=== PATIENT | male | born 1965 | race Caucasian/White ===

== ENCOUNTER → 2024-06-04 | Outpatient (CLI) | payer MEDICAID, SELFPAY ==
--- NOTE | 2024-06-04 | XR_ITS ---
Examination: PA lateral chest 2 views TECHNIQUE: Upright PA lateral chest 2 views Exam date and time: June 04, 2024 1413 hours INDICATIONS: Status post cardiac bypass surgery May 11, 2024 with swelling in the legs FINDINGS: CABG Mild enlargement cardiac contour Mild pulmonary vascular redistribution Moderate left pleural effusion with atelectasis left lower lobe IMPRESSION: Consider ultrasound left hemithorax follow-up to confirm moderate left pleural effusion
== END | disposition home or self-care (01) ==
PROVIDERS: PCP Nurse Practitioner Family; Referring Provider Nurse Practitioner Family; Visit Provider Nurse Practitioner Family
DX: R91.8 Other nonspecific abnormal finding of lung field (principal); Z98.890 Other specified postprocedural states
CPT/HCPCS: 71046

== ENCOUNTER → 2024-08-10 | Outpatient (CLI) | payer MEDICAID, SELFPAY ==
--- NOTE | 2024-08-10 14:33 | XR_ITS ---
Examination: Knee, left , 3 views Technique: Knee AP, lateral, oblique 3 views Date and time of exam: August 10, 2024 1452 hrs. Indications: Twisting injury to the knee one month ago, knee pain Findings: Moderate narrowing medial patellofemoral joints Moderate knee effusion No fracture Impression: No fracture
== END | disposition home or self-care (01) ==
PROVIDERS: PCP Nurse Practitioner Family; Referring Provider Nurse Practitioner Family; Visit Provider Nurse Practitioner Family
DX: S89.92XA Unspecified injury of left lower leg, initial encounter (principal); X50.1XXA Overexertion from prolonged static or awkward postures, initial encounter
CPT/HCPCS: 73562

== ENCOUNTER 2024-08-31 08:55 | Day surgery (SDC) | payer MEDICAID, SELFPAY ==
[2024-08-30 13:33] VITALS: BMI 33.0
[2024-08-31] VITALS (13 sets, daily range): BP systolic 107–157; BP diastolic 63–98; PULSE 62–91; RESP 12–18; TEMP 36.3–37; O2SAT 94–99; BMI 35.6
[2024-08-31] MEDS: RINGERS LACTATED 1000 ML 1,000 ML 125 ML IV (09:52)
[2024-08-31] MEDS: DiphenhydrAMINE INJ 50 MG/ML VIAL 25 MG IV (09:54)
[2024-08-31] MEDS: fentaNYL CIT INJ 50 mCg/ML AMP 2ML (ASD USE ONLY) IV (09:57)
[2024-08-31] MEDS: MIDAZOLAM INJ 1 MG/ML VIAL 2 ML (ASD USE ONLY) 2 MG IV (10:05)
== END 2024-08-31 11:20 | disposition home or self-care (01) ==
PROVIDERS: PCP Nurse Practitioner Family; Referring Provider Surgery; Visit Provider Surgery
PROC: 0DBE8ZX Excision of Large Intestine, Via Natural or Artificial Opening Endoscopic, Diagnostic (ICD-10-PCS; CPT 45380; principal; 2024-08-31 10:15)
DX: Z12.11 Encounter for screening for malignant neoplasm of colon (principal); D12.8 Benign neoplasm of rectum; K57.30 Diverticulosis of large intestine without perforation or abscess without bleeding; K64.8 Other hemorrhoids
CPT/HCPCS: 45385; J1200; J2250; J3010; J7120

== ENCOUNTER → 2025-01-21 | Outpatient (CLI) | payer MEDICAID, SELFPAY ==
--- NOTE | 2025-01-21 14:05 | XR_ITS ---
Examination: Knee, left , 3 views Technique: Knee AP, lateral, oblique 3 views Date and time of exam: January 31, 2025 1406 hours COMPARISON: August 10, 2024 INDICATIONS: Twisting injury to the knee June 2024 FINDINGS: Moderate narrowing medial patellofemoral joints No fracture or dislocation No foreign body IMPRESSION: No fracture or dislocation
--- NOTE | 2025-01-21 14:05 | XR_ITS ---
Examination: Bilateral hands, 6 views. Technique: AP, Oblique, Lateral each hand total 6 views Date and time of exam: March 2025 1406 hours INDICATIONS: Patient fell 3 years ago with injury to both hands, bilateral hand pain. FINDINGS: No acute fracture involving either hand Bilateral moderate osteoarthritis first carpometacarpal joints Bilateral mild osteoarthritis distal interphalangeal joints No erosive arthritis No avascular necrosis IMPRESSION: Osteoarthritis as above
== END | disposition home or self-care (01) ==
PROVIDERS: PCP Nurse Practitioner Family; Referring Provider Nurse Practitioner Family; Visit Provider Nurse Practitioner Family
DX: M19.042 Primary osteoarthritis, left hand (principal); M19.041 Primary osteoarthritis, right hand; M18.0 Bilateral primary osteoarthritis of first carpometacarpal joints; M25.562 Pain in left knee; S89.92XS Unspecified injury of left lower leg, sequela; X50.1XXS Overexertion from prolonged static or awkward postures, sequela
CPT/HCPCS: 73130; 73564

== ENCOUNTER → 2025-02-24 | Outpatient (CLI) | payer MEDICAID, SELFPAY ==
--- NOTE | 2025-02-24 13:47 | XR_ITS ---
Examination: Bilateral hands, 6 views. Technique: AP, Oblique, Lateral each hand total 6 views Date and time of exam: February 24, 2025 1407 hours INDICATIONS: Bilateral hand pain after falling 3 years ago Findings: Moderate osteopenia. Mild osteoarthritis radiocarpal, first carpometacarpal joints as well as distal interphalangeal joints second through fifth digits and interphalangeal joints first digits No erosive arthritis. No acute fractures IMPRESSION: Osteoarthritis as above
--- NOTE | 2025-02-24 13:47 | XR_ITS ---
Examination: Bilateral wrists 6 views TECHNIQUE: AP oblique lateral each wrist total 6 views Date and time: February 24, 2025 1616 hours INDICATIONS: Patient fell 3 years ago with injury to both wrists, bilateral wrist pain. FINDINGS: Moderate osteopenia. No fracture or dislocation involving either wrist. Mild to moderate osteoarthritis radiocarpal, navicular trapezium, first carpometacarpal joints No erosive arthritis IMPRESSION: Osteoarthritis as above
== END | disposition home or self-care (01) ==
LOC: CDIM 13:43
PROVIDERS: PCP Nurse Practitioner Family
DX: M19.042 Primary osteoarthritis, left hand (principal); M19.041 Primary osteoarthritis, right hand; M19.032 Primary osteoarthritis, left wrist; M19.031 Primary osteoarthritis, right wrist
CPT/HCPCS: 73110; 73130

== ENCOUNTER 2025-03-01 12:52 | Outpatient (AMB) | payer MEDICAID, SELFPAY ==
[2025-03-01 13:07] VITALS: BP 119/76; PULSE 79; RESP 18; TEMP 36.5; O2SAT 95; BMI 35.4
--- NOTE | 2025-03-01 13:07 | ORTHONT_ITS ---
Vital signs 03/01/25 13:07 Height 1.78 m Height Method Measured Weight 112.236 kg Weight Measurement Method Standing Scale BMI 35.4 BP 119/76 Blood Pressure Source Automatic Cuff Blood Pressure Location Left Upper Arm Position Sitting Respiration 18 Pulse 79 Pulse Source Monitor Temp 97.7 F Temp Source Temporal Artery Scan Pulse Oximetry (%) 95 Oxygen Delivery Method Room Air Med/Allergies Allergies & Medications Allergies No Known Allergies Allergy (Verified 03/01/25 13:09) Medication Reconciliation buprenorphine 2 mg-naloxone 0.5 mg sublingual film 1 film buccal QDAY 12/03/22 [History Confirmed 03/01/25] atenolol 50 mg tablet 25 mg PO QDAY 11/13/23 [History Confirmed 03/01/25] atorvastatin 20 mg tablet 40 mg PO QDAY 11/13/23 [History Confirmed 03/01/25] dapagliflozin propanediol 10 mg tablet (Farxiga) 10 mg PO QAM 11/13/23 [History Confirmed 03/01/25] thyroid (pork) 120 mg tablet (DIGITAL ACCOUNT MANAGER Thyroid) 120 mg PO QDAY 11/13/23 [History Confirmed 03/01/25] clopidogrel 75 mg tablet 75 mg PO QPM 07/20/24 [History Confirmed 03/01/25] Held on 08/31/24. Instructions: Resume on 09/01/24. ergocalciferol (vitamin D2) 1,250 mcg (50,000 unit) capsule 50,000 unit PO QWEEK 07/20/24 [History Confirmed 03/01/25] ferrous sulfate 325 mg (65 mg iron) tablet (FeroSul) 325 mg PO BIDAC 07/20/24 [History Confirmed 03/01/25] finasteride 5 mg tablet 5 mg PO DAILY 07/20/24 [History Confirmed 03/01/25] folic acid 1 mg tablet 1 mg PO DAILY 07/20/24 [History Confirmed 03/01/25] tamsulosin 0.4 mg capsule 0.4 mg PO QDAY 07/20/24 [History Confirmed 03/01/25] bumetanide 2 mg tablet 2 mg PO QDAY 08/30/24 [History Confirmed 03/01/25] insulin glargine 100 unit/mL (3 mL) subcutaneous pen (Lantus Solostar U-100 Insulin) 50 unit subcut QDAY 08/30/24 [History Confirmed 03/01/25] Exam Exam Breathing is nonlabored. Patient has a normal mood and affect. Bilateral extremities were evaluated and demonstrates sensation intact to light touch. Palpable pedal pulses are present. No significant edema is present. Bilateral hips were examined. The patient has no pain with log roll of the hips. Internal rotation to 30 degrees and external rotation to 30 degrees is painless. Negative FADIR. Left knee was examined today. The left knee is in reasonable alignment. Range of motion from 0-120 degrees. Knee is stable to varus and valgus as well as AP translation with <5mm. Patient has a negative McMurrays. There is no pain with patellofemoral compression and no crepitus noted. The knee is nontender to palpation. The right knee was also examined. The right knee is in varus alignment. Range of motion from 0-115 degrees. Knee is stable to varus and valgus as well as AP translation with <5mm. Patient has a negative McMurrays. There is no pain with patellofemoral compression and no crepitus noted. The knee is tender to palpation medially. Assessment and Plan Problem List (1) Arthritis of left knee: Status: Acute Plan: Patient is a 59-year-old male with left knee pain and left knee arthritis. I would like to get weightbearing x-rays. He had a recent CABG. I would likely do cortisone injections in nonoperative treatment given his medical comorbidities. I would like to see weightbearing x-rays as well We will see him back likely for injections at the next visit. Office Procedures GNS Level of Care Nursing/Assessment Patient Status: Initial/New Patient Nursing Assessment/Reassesment: Medication Reconciliation, Update PMH in EMR and Vital Signs Coordination of Care: Complex Care and Chronic Disease 1-5, Education Complex Pt/Fam, Consent,records obtained, informed consent, Lab and Imaging orders, Results/Orders obtained and Staff clarify orders New Patient Charge New Patient Point Assignment: 1109 New Patient Point Charge: DIGITAL ACCOUNT MANAGER Level 3 ([id number]) MA Intake Visit Data Collection New Patient or Established: New Patient (never been to [facility]) Reason for Visit:: LEFT KNEE PAIN Seen by Clinical Staff ONLY (RN/MA): No Special Effects Person Required: No PCP or OBGYN visit in last 3 months: Yes Hx Now: No Do You Feel Safe at Home: Yes Authorities Contacted: N/A Questionairres Past Medical History Past Medical History Have you ever been diagnosed with any of the following: Neurological Problems Cerebrovascular Accident (CVA): No Transient Ischemic Attacks (TIA): No Dementia: No Alzheimer's Disease: No Parkinson's Disease: No Brain Tumor: No Meningitis: No Seizures: No Epilepsy: No Multiple Sclerosis: No Cerebral Palsy: No Amyotrophic Lateral Sclerosis (ALS/Unique Gehrig's): No Guillain-[place] Syndrome: No Spina Bifida: No Paralysis: No Peripheral Neuropathy: No Carrizales's Palsy: No Subdural Hematoma: No Migraine: No Head Trauma: No Spinal Cord Injury: No Traumatic Brain Injury: No Cardiology Problems Myocardial Infarction: No Cardiac Arrhythmia: No Atrial Fibrillation: No Angina: Yes (takes nitro) Heart Murmur: No Coronary Artery Disease: No Atherosclerotic Heart Disease: No Peripheral Vascular Disease: No Hypercholesterolemia: No Aneurysm: No Congestive Heart Failure: No Congenital Heart Disease: No Valvular Heart Disease: No Rheumatic Fever: No Cardiomyopathy: No Edema: Yes (BLE since bypass) Pericarditis: No Cellulitis: No Deep Vein Thrombosis: No Hypertension: Yes Hypotension: No Varicose Veins: No Respiratory Problems Chronic Obstructive Pulmonary Disease (COPD): No Asthma: No Bronchitis: No Emphysema: No Pneumonia: No Pulmonary Fibrosis: No Tuberculosis: No Pulmonary Embolism: No Pulmonary Edema: No Sleep Apnea: No Stomache/Intestinal Problems Hepatitis: No Cirrhosis: No Pancreatitis: No Celiac Disease: No Gall Bladder Disease: No Gastrointestinal Bleed: No Esophageal Varices: No Cuellar's Esophagus: No Colitis: No Ulcerative Colitis: No Diverticulitis: No Diverticulosis: No Ulcer: No Colorectal Cancer: No Irritable Bowel: No Crohn's Disease: No Obstructive Bowel: No Hiatal Hernia: No Hemorrhoids: No Gastroesophageal Reflux Disease: No Obesity: Yes Genital/Urinary Problems Renal Disease: No Kidney Stones: No Polycystic Kidney Disease: No Neurogenic Bladder: No Inguinal Hernia: No Dialysis: No Prostate Cancer: No Benign Prostatic Hyperplasia: No Reproductive Problems Breast Cancer: No Testicular Cancer: No Musculoskeletal Problems Muscular Dystrophy: No Myasthenia Gravis: No Marfan's Syndrome: No Bone Cancer: No Arthritis: No Rheumatoid Arthritis: No Osteoporosis: No Degenerative Disk Disease: No Gout: No Scoliosis: No Carpal Tunnel Syndrome: Yes (left) Fibromyalgia: No Fractures: No Degenerative Joint Disease: No Osteomyelitis: No Poliovirus: No Head,Eye,Nose,Throat Problems Cataracts: No Glaucoma: No Blind: No Retinal Detachment: No Macular Degeneration: No Chronic Ear Infections: No Deafness: No Eye Prosthesis: No Endocrine Problems Diabetes Mellitus Type 1: No Diabetes Mellitus Type 2: Yes Hypoglycemia: No Sherwood's Syndrome: No Michael's Disease: No Hyperthyroidism: Yes Hypothyroidism: Yes Parathyroid Disease: No Pituitary Disease: No Systemic Lupus Erythematosus: No Syndrome of Inappropriate Antidiuretic Hormone: No Adrenal Disease: No Graves' Disease: No Blood Problems Anemia: No Leukemia: No Hemophilia: No Thalassemia: No Sickle Cell Disease: No Clotting Problems: No Psychologic Problems Schizophrenia: No Recreational Drug Use: No Bipolar Disorder: No Depression: No Anxiety: No Behavior Problems: No Self-Mutilation: No Attention Deficit Disorder: No Attention Deficit Hyperactivity Disorder: No Depression: No Post Traumatic Stress Disorder: No Eating Disorder: No Other Problems Hospitalization: Yes (icu 2021) Down Syndrome: No Autism: No Developmental Delay: No Shingles: No Falls: No Blood Transfusions: No Blood Transfusion Reaction: No Anesthesia Reactions: No Organ Transplant: No Chemotherapy: No Radiation Therapy: No Hyperbaric Therapy: No MRSA: No VRSA: No Vancomycin-Resistant Enterococci: No Human Immunodeficiency Virus (HIV): No Chicken Pox: Yes Measles: No Mumps: No Rubella ([place] Measles): No Pertussis: No Clostridium Difficile: No Cancer: No Lung Cancer: No Surgical History Carotid Endarterectomy: No Coronary Artery Bypass Graft: No Valve Replacement: No Pacemaker: No Thyroidectomy: No Subjective Visit Visit for: new patient and knee Immunization / Flu Flu Vaccine in the Last 12 Months: No Flu Vaccine Exclusion Criteria: Refused by Patient History of Present Illness Chief complaint: LEFT KNEE PAIN Date of injury / onset of symptoms: 2021 Date of 1st surgery (if applicable): Stef is a pleasant 59-year-old male with left knee pain. He reports his significant left knee arthritis and was told he had a knee replacement. He had a prior arthroscopic meniscectomy 3 years ago. This helped somewhat. The pain really increased last 3 months. He does not take any anti-inflammatories but has tried 3 injections in the past with mixed results Personal History Occupation: RETIRED Red flag PMH: none BMI Counceling provided: Yes Pain Pain level (0-10): 4 Pain location: anterior Pain quality: sharp and tingling Associated signs & symptoms: numbness and stiffness Ambulatory data Ambulatory device: none Treatments Number of previous injections: 0 Improvement with previous injections: No Number of Physical Therapy sessions: 0 Improvement with PT: No Improvement with NSAIDS: no Review of Systems Review of Systems: All systems negative unless otherwise noted in HPI.
--- NOTE | 2025-03-01 13:12 | XR_ITS ---
Examination: Bilateral AP knees single view Left knee PA lateral axial 3 views TECHNIQUE: Bilateral AP knees standing single view Left knee PA standing flexion, standing lateral, axial left knee 3 views total 4 views Date and time: March 01, 2025 1316 hours INDICATIONS: Knee pain post injury on the left 2 months ago FINDINGS: Moderate osteopenia. Mild narrowing medial joint space right knee Advanced narrowing medial joint space left knee Significant osteoarthritis left patellofemoral joint No fracture IMPRESSION: Advanced narrowing medial joint space left knee Significant osteoarthritis left patellofemoral joint
== END 2025-03-01 13:13 | disposition home or self-care (01) ==
LOC: HODSRG 12:52
PROVIDERS: PCP Nurse Practitioner Family; Referring Provider Nurse Practitioner Family; Supervising Provider Orthopaedic Surgery Adult Reconstructive Orthopaedic Surgery; Visit Provider Orthopaedic Surgery Adult Reconstructive Orthopaedic Surgery
DX: M17.12 Unilateral primary osteoarthritis, left knee (principal); M25.562 Pain in left knee; M85.862 Other specified disorders of bone density and structure, left lower leg; I10 Essential (primary) hypertension; E11.9 Type 2 diabetes mellitus without complications; Z95.1 Presence of aortocoronary bypass graft
CPT/HCPCS: 73564; 99203; G0463

== ENCOUNTER 2025-03-15 10:15 | Outpatient (AMB) | payer MEDICAID, SELFPAY ==
--- NOTE | 2025-03-15 10:35 | PD.ORTHCLVIS ---
Vital signs 03/15/25 10:36 Height 1.78 m Height Method Measured Weight 110.733 kg Weight Measurement Method Standing Scale BMI 34.9 BP 112/68 Blood Pressure Source Automatic Cuff Blood Pressure Location Left Upper Arm Position Sitting Respiration 16 Pulse 83 Pulse Source Monitor Temp 97.7 F Temp Source Temporal Artery Scan Pulse Oximetry (%) 96 Oxygen Delivery Method Room Air Med/Allergies Allergies & Medications Allergies No Known Allergies Allergy (Verified 03/15/25 10:37) Medication Reconciliation buprenorphine 2 mg-naloxone 0.5 mg sublingual film 1 film buccal QDAY 12/03/22 [History Confirmed 03/15/25] atenolol 50 mg tablet 25 mg PO QDAY 11/13/23 [History Confirmed 03/15/25] atorvastatin 20 mg tablet 40 mg PO QDAY 11/13/23 [History Confirmed 03/15/25] dapagliflozin propanediol 10 mg tablet (Farxiga) 10 mg PO QAM 11/13/23 [History Confirmed 03/15/25] thyroid (pork) 120 mg tablet (INSULATION CUTTER Thyroid) 120 mg PO QDAY 11/13/23 [History Confirmed 03/15/25] clopidogrel 75 mg tablet 75 mg PO QPM 07/20/24 [History Confirmed 03/15/25] Held on 08/31/24. Instructions: Resume on 09/01/24. ergocalciferol (vitamin D2) 1,250 mcg (50,000 unit) capsule 50,000 unit PO QWEEK 07/20/24 [History Confirmed 03/15/25] ferrous sulfate 325 mg (65 mg iron) tablet (FeroSul) 325 mg PO BIDAC 07/20/24 [History Confirmed 03/15/25] finasteride 5 mg tablet 5 mg PO DAILY 07/20/24 [History Confirmed 03/15/25] folic acid 1 mg tablet 1 mg PO DAILY 07/20/24 [History Confirmed 03/15/25] tamsulosin 0.4 mg capsule 0.4 mg PO QDAY 07/20/24 [History Confirmed 03/15/25] bumetanide 2 mg tablet 2 mg PO QDAY 08/30/24 [History Confirmed 03/15/25] insulin glargine 100 unit/mL (3 mL) subcutaneous pen (Lantus Solostar U-100 Insulin) 50 unit subcut QDAY 08/30/24 [History Confirmed 03/15/25] Exam Exam Breathing is nonlabored. Patient has a normal mood and affect. Bilateral extremities were evaluated and demonstrates sensation intact to light touch. Palpable pedal pulses are present. No significant edema is present. Bilateral hips were examined. The patient has no pain with log roll of the hips. Internal rotation to 30 degrees and external rotation to 30 degrees is painless. Negative FADIR. Left knee was examined today. The left knee is in reasonable alignment. Range of motion from 0-120 degrees. Knee is stable to varus and valgus as well as AP translation with <5mm. Patient has a negative McMurrays. There is no pain with patellofemoral compression and no crepitus noted. The knee is nontender to palpation. The right knee was also examined. The right knee is in varus alignment. Range of motion from 0-115 degrees. Knee is stable to varus and valgus as well as AP translation with <5mm. Patient has a negative McMurrays. There is no pain with patellofemoral compression and no crepitus noted. The knee is tender to palpation medially. X-rays demonstrate [id number] arthritis of the left knee with medial joint space narrowing Assessment and Plan Problem List (1) Arthritis of left knee: Status: Acute Plan: Patient is a 59-year-old male with left knee pain and left knee arthritis. I would like to get weightbearing x-rays. He had a recent CABG. I would likely do cortisone injections in nonoperative treatment given his medical comorbidities. He has [id number] arthritis but is not a great operative candidate We will see him back likely for injections at the next visit. We are not doing injections today as he is getting an angiogram later today Office Procedures GNS Level of Care Nursing/Assessment Patient Status: Established Patient Nursing Assessment/Reassesment: Medication Reconciliation, Update PMH in EMR and Vital Signs Coordination of Care: Complex Care and Chronic Disease 1-5, Education Complex Pt/Fam, Consent,records obtained, informed consent, Results/Orders obtained and Staff clarify orders Established Patient Charge Established Patient Point Assignment: 95 Established Patient Point Charge: EP Level 3 (80-115) MA Intake Visit Data Collection New Patient or Established: Established Patient (seen at [facility] within 3 years) Reason for Visit:: XRAY RESULTS/BILATERAL KNEE INJECTION Seen by Clinical Staff ONLY (RN/MA): No Metal Casket Maker Required: No PCP or OBGYN visit in last 3 months: Yes Hx Now: No Do You Feel Safe at Home: Yes Authorities Contacted: N/A Questionairres Past Medical History Past Medical History Have you ever been diagnosed with any of the following: Neurological Problems Cerebrovascular Accident (CVA): No Transient Ischemic Attacks (TIA): No Dementia: No Alzheimer's Disease: No Parkinson's Disease: No Brain Tumor: No Meningitis: No Seizures: No Epilepsy: No Multiple Sclerosis: No Cerebral Palsy: No Amyotrophic Lateral Sclerosis (ALS/Unique Gehrig's): No Guillain-[place] Syndrome: No Spina Bifida: No Paralysis: No Peripheral Neuropathy: No Carrizales's Palsy: No Subdural Hematoma: No Migraine: No Head Trauma: No Spinal Cord Injury: No Traumatic Brain Injury: No Cardiology Problems Myocardial Infarction: No Cardiac Arrhythmia: No Atrial Fibrillation: No Angina: Yes (takes nitro) Heart Murmur: No Coronary Artery Disease: No Atherosclerotic Heart Disease: No Peripheral Vascular Disease: No Hypercholesterolemia: No Aneurysm: No Congestive Heart Failure: No Congenital Heart Disease: No Valvular Heart Disease: No Rheumatic Fever: No Cardiomyopathy: No Edema: Yes (BLE since bypass) Pericarditis: No Cellulitis: No Deep Vein Thrombosis: No Hypertension: Yes Hypotension: No Varicose Veins: No Respiratory Problems Chronic Obstructive Pulmonary Disease (COPD): No Asthma: No Bronchitis: No Emphysema: No Pneumonia: No Pulmonary Fibrosis: No Tuberculosis: No Pulmonary Embolism: No Pulmonary Edema: No Sleep Apnea: No Stomache/Intestinal Problems Hepatitis: No Cirrhosis: No Pancreatitis: No Celiac Disease: No Gall Bladder Disease: No Gastrointestinal Bleed: No Esophageal Varices: No Cuellar's Esophagus: No Colitis: No Ulcerative Colitis: No Diverticulitis: No Diverticulosis: No Ulcer: No Colorectal Cancer: No Irritable Bowel: No Crohn's Disease: No Obstructive Bowel: No Hiatal Hernia: No Hemorrhoids: No Gastroesophageal Reflux Disease: No Obesity: Yes Genital/Urinary Problems Renal Disease: No Kidney Stones: No Polycystic Kidney Disease: No Neurogenic Bladder: No Inguinal Hernia: No Dialysis: No Prostate Cancer: No Benign Prostatic Hyperplasia: No Reproductive Problems Breast Cancer: No Testicular Cancer: No Musculoskeletal Problems Muscular Dystrophy: No Myasthenia Gravis: No Marfan's Syndrome: No Bone Cancer: No Arthritis: No Rheumatoid Arthritis: No Osteoporosis: No Degenerative Disk Disease: No Gout: No Scoliosis: No Carpal Tunnel Syndrome: Yes (left) Fibromyalgia: No Fractures: No Degenerative Joint Disease: No Osteomyelitis: No Poliovirus: No Head,Eye,Nose,Throat Problems Cataracts: No Glaucoma: No Blind: No Retinal Detachment: No Macular Degeneration: No Chronic Ear Infections: No Deafness: No Eye Prosthesis: No Endocrine Problems Diabetes Mellitus Type 1: No Diabetes Mellitus Type 2: Yes Hypoglycemia: No Ya's Syndrome: No [place]'s Disease: No Hyperthyroidism: Yes Hypothyroidism: Yes Parathyroid Disease: No Pituitary Disease: No Systemic Lupus Erythematosus: No Syndrome of Inappropriate Antidiuretic Hormone: No Adrenal Disease: No Graves' Disease: No Blood Problems Anemia: No Leukemia: No Hemophilia: No Thalassemia: No Sickle Cell Disease: No Clotting Problems: No Psychologic Problems Schizophrenia: No Recreational Drug Use: No Bipolar Disorder: No Depression: No Anxiety: No Behavior Problems: No Self-Mutilation: No Attention Deficit Disorder: No Attention Deficit Hyperactivity Disorder: No Depression: No Post Traumatic Stress Disorder: No Eating Disorder: No Other Problems Hospitalization: Yes (icu 2021) Down Syndrome: No Autism: No Developmental Delay: No Shingles: No Falls: No Blood Transfusions: No Blood Transfusion Reaction: No Anesthesia Reactions: No Organ Transplant: No Chemotherapy: No Radiation Therapy: No Hyperbaric Therapy: No MRSA: No VRSA: No Vancomycin-Resistant Enterococci: No Human Immunodeficiency Virus (HIV): No Chicken Pox: Yes Measles: No Mumps: No Rubella ([place] Measles): No Pertussis: No Clostridium Difficile: No Cancer: No Lung Cancer: No Surgical History Carotid Endarterectomy: No Coronary Artery Bypass Graft: No Valve Replacement: No Pacemaker: No Thyroidectomy: No Subjective Visit Visit for: follow up visit and knee Immunization / Flu Flu Vaccine in the Last 12 Months: No Flu Vaccine Exclusion Criteria: Refused by Patient History of Present Illness Chief complaint: LEFT KNEE PAIN Date of injury / onset of symptoms: 2021 Date of 1st surgery (if applicable): Stef is a pleasant 59-year-old male with left knee pain. He reports his significant left knee arthritis and was told he had a knee replacement. He had a prior arthroscopic meniscectomy 3 years ago. This helped somewhat. The pain really increased last 3 months. He does not take any anti-inflammatories but has tried 3 injections in the past with mixed results Personal History Occupation: RETIRED Red flag PMH: none BMI Counceling provided: Yes Pain Pain level (0-10): 4 Pain location: anterior Pain quality: sharp and tingling Associated signs & symptoms: numbness and stiffness Ambulatory data Ambulatory device: none Treatments Number of previous injections: 0 Improvement with previous injections: No Number of Physical Therapy sessions: 0 Improvement with PT: No Improvement with NSAIDS: no Review of Systems Review of Systems: All systems negative unless otherwise noted in HPI.
[2025-03-15 10:36] VITALS: BP 112/68; PULSE 83; RESP 16; TEMP 36.5; O2SAT 96; BMI 34.9
== END 2025-03-15 11:04 | disposition home or self-care (01) ==
LOC: HODSRG 10:15
PROVIDERS: PCP Nurse Practitioner Family; Referring Provider Nurse Practitioner Family; Supervising Provider Orthopaedic Surgery Adult Reconstructive Orthopaedic Surgery; Visit Provider Orthopaedic Surgery Adult Reconstructive Orthopaedic Surgery
DX: M17.12 Unilateral primary osteoarthritis, left knee (principal); M25.562 Pain in left knee; Z95.1 Presence of aortocoronary bypass graft; I10 Essential (primary) hypertension; E11.9 Type 2 diabetes mellitus without complications; E03.9 Hypothyroidism, unspecified; E66.9 Obesity, unspecified; Z71.3 Dietary counseling and surveillance; Z68.34 Body mass index [BMI] 34.0-34.9, adult
CPT/HCPCS: 99213; G0463

== ENCOUNTER 2025-04-12 08:37 | Outpatient (AMB) | payer MEDICAID, SELFPAY ==
[2025-04-12 09:13] VITALS: BP 135/80; PULSE 86; RESP 18; TEMP 35.9; O2SAT 97; BMI 34.5
--- NOTE | 2025-04-12 09:13 | ORTHONT_ITS ---
Vital signs 04/12/25 09:13 Height 1.78 m Height Method Stated Weight 109.486 kg Weight Measurement Method Standing Scale BMI 34.5 BP 135/80 H Blood Pressure Source Automatic Cuff Blood Pressure Location Left Upper Arm Position Sitting Respiration 18 Pulse 86 Pulse Source Monitor Temp 96.7 F L Temp Source Temporal Artery Scan Pulse Oximetry (%) 97 Oxygen Delivery Method Room Air Med/Allergies Allergies & Medications Allergies No Known Allergies Allergy (Verified 04/12/25 09:14) Medication Reconciliation buprenorphine 2 mg-naloxone 0.5 mg sublingual film 1 film buccal QDAY 12/03/22 [History Confirmed 04/12/25] atenolol 50 mg tablet 25 mg PO QDAY 11/13/23 [History Confirmed 04/12/25] atorvastatin 20 mg tablet 40 mg PO QDAY 11/13/23 [History Confirmed 04/12/25] dapagliflozin propanediol 10 mg tablet (Farxiga) 10 mg PO QAM 11/13/23 [History Confirmed 04/12/25] thyroid (pork) 120 mg tablet (CAR GROOMER Thyroid) 120 mg PO QDAY 11/13/23 [History Confirmed 04/12/25] clopidogrel 75 mg tablet 75 mg PO QPM 07/20/24 [History Confirmed 04/12/25] Held on 08/31/24. Instructions: Resume on 09/01/24. ergocalciferol (vitamin D2) 1,250 mcg (50,000 unit) capsule 50,000 unit PO QWEEK 07/20/24 [History Confirmed 04/12/25] ferrous sulfate 325 mg (65 mg iron) tablet (FeroSul) 325 mg PO BIDAC 07/20/24 [History Confirmed 04/12/25] finasteride 5 mg tablet 5 mg PO DAILY 07/20/24 [History Confirmed 04/12/25] folic acid 1 mg tablet 1 mg PO DAILY 07/20/24 [History Confirmed 04/12/25] tamsulosin 0.4 mg capsule 0.4 mg PO QDAY 07/20/24 [History Confirmed 04/12/25] bumetanide 2 mg tablet 2 mg PO QDAY 08/30/24 [History Confirmed 04/12/25] insulin glargine 100 unit/mL (3 mL) subcutaneous pen (Lantus Solostar U-100 Insulin) 50 unit subcut QDAY 08/30/24 [History Confirmed 04/12/25] Exam Exam Breathing is nonlabored. Patient has a normal mood and affect. Bilateral extremities were evaluated and demonstrates sensation intact to light touch. Palpable pedal pulses are present. No significant edema is present. Bilateral hips were examined. The patient has no pain with log roll of the hips. Internal rotation to 30 degrees and external rotation to 30 degrees is painless. Negative FADIR. Left knee was examined today. The left knee is in reasonable alignment. Range of motion from 0-120 degrees. Knee is stable to varus and valgus as well as AP translation with <5mm. Patient has a negative McMurrays. There is no pain with patellofemoral compression and no crepitus noted. The knee is nontender to palpation. The right knee was also examined. The right knee is in varus alignment. Range of motion from 0-115 degrees. Knee is stable to varus and valgus as well as AP translation with <5mm. Patient has a negative McMurrays. There is no pain with patellofemoral compression and no crepitus noted. The knee is tender to palpation medially. X-rays demonstrate [id number] arthritis of the left knee with medial joint space narrowing Assessment and Plan Problem List (1) Arthritis of left knee: Status: Acute Plan: Patient is a 59-year-old male with left knee pain and left knee arthritis. I would like to get weightbearing x-rays. He had a recent CABG. I would likely do cortisone injections in nonoperative treatment given his medical comorbidities. He has [id number] arthritis but is not a great operative candidate Recommend knee cortisone injection as patient would like to proceed with conservative treatment at this time. The risks and benefits of the procedure were reviewed with the patient and patient gave verbal consent to continue with the procedure. Procedure: performed by Dr. Lindsay Using sterile technique the Right knee was thoroughly prepped with alcohol, and approximately 1 cc of Depo-Medrol 80mg/mL and 4 cc of 0.2% ropivacaine was injected without resistance into the medial tibial femoral joint space. The patient tolerated the procedure. Recommend knee cortisone injection as patient would like to proceed with conservative treatment at this time. The risks and benefits of the procedure were reviewed with the patient and patient gave verbal consent to continue with the procedure. Procedure: performed by Dr. Lindsay Using sterile technique the leftknee was thoroughly prepped with alcohol, and approximately 1 cc of Depo- Medrol 80mg/mL and 4 cc of 0.2% ropivacaine was injected without resistance into the medial tibial femoral joint space. The patient tolerated the procedure. Office Procedures GNS Level of Care Nursing/Assessment Patient Status: Established Patient Nursing Assessment/Reassesment: Medication Reconciliation, Update PMH in EMR and Vital Signs Coordination of Care: Complex Care and Chronic Disease 1-5, Education Complex Pt/Fam, Consent,records obtained, informed consent, Results/Orders obtained and Staff clarify orders Established Patient Charge Established Patient Point Assignment: 95 Established Patient Point Charge: EP Level 3 (80-115) Surgical Proc/IM SQ injection Minor Surgical Procedure: Yes (BILATERAL KNEE INJECTION) Medication Given Medication Given Medication Given: Yes Documented Dose Given: 2 Route: Infiitration Medication Given Medication Given Medication Given: Yes Documented Dose Given: 8 Route: Infiitration Office Meds methylprednisolone acetate 80 mg/mL suspension for injection Performing Provider: Jude Lindsay MD Performing Location: [facility] Administered by: Jude Lindsay MD on 04/12/25 09:47 Dose Route Admin Location Dispensed Lot Number Expiration Date Pack age [facility] Alignment Technician 160 mg intra-articular KNEE 2 mL [id number] 12/13/26 [address]-3 [id number] [employer] ropivacaine (PF) 2 mg/mL (0.2 %) injection solution Performing Provider: Jude Lindsay MD Performing Location: [facility] Administered by: Jude Lindsay MD on 04/12/25 09:47 Dose Route Admin Location Dispensed Lot Number Expiration Date Pack age [facility] Alignment Technician 40 mL Infiltration KNEE 40 mL [id number] 07/15/27 88151-372-27 [id number] [facility] Intake Visit Data Collection New Patient or Established: Established Patient (seen at [facility] within 3 years) Reason for Visit:: BILATERAL KNEE PAIN Seen by Clinical Staff ONLY (RN/MA): No Experimental Rocket Sled Mechanic Required: No PCP or OBGYN visit in last 3 months: Yes Hx Now: No Do You Feel Safe at Home: Yes Authorities Contacted: N/A Questionairres Past Medical History Past Medical History Have you ever been diagnosed with any of the following: Neurological Problems Cerebrovascular Accident (CVA): No Transient Ischemic Attacks (TIA): No Dementia: No Alzheimer's Disease: No Parkinson's Disease: No Brain Tumor: No Meningitis: No Seizures: No Epilepsy: No Multiple Sclerosis: No Cerebral Palsy: No Amyotrophic Lateral Sclerosis (ALS/Unique Gehrig's): No Guillain-[place] Syndrome: No Spina Bifida: No Paralysis: No Peripheral Neuropathy: No Carrizales's Palsy: No Subdural Hematoma: No Migraine: No Head Trauma: No Spinal Cord Injury: No Traumatic Brain Injury: No Cardiology Problems Myocardial Infarction: No Cardiac Arrhythmia: No Atrial Fibrillation: No Angina: Yes (takes nitro) Heart Murmur: No Coronary Artery Disease: No Atherosclerotic Heart Disease: No Peripheral Vascular Disease: No Hypercholesterolemia: No Aneurysm: No Congestive Heart Failure: No Congenital Heart Disease: No Valvular Heart Disease: No Rheumatic Fever: No Cardiomyopathy: No Edema: Yes (BLE since bypass) Pericarditis: No Cellulitis: No Deep Vein Thrombosis: No Hypertension: Yes Hypotension: No Varicose Veins: No Respiratory Problems Chronic Obstructive Pulmonary Disease (COPD): No Asthma: No Bronchitis: No Emphysema: No Pneumonia: No Pulmonary Fibrosis: No Tuberculosis: No Pulmonary Embolism: No Pulmonary Edema: No Sleep Apnea: No Stomache/Intestinal Problems Hepatitis: No Cirrhosis: No Pancreatitis: No Celiac Disease: No Gall Bladder Disease: No Gastrointestinal Bleed: No Esophageal Varices: No Cuellar's Esophagus: No Colitis: No Ulcerative Colitis: No Diverticulitis: No Diverticulosis: No Ulcer: No Colorectal Cancer: No Irritable Bowel: No Crohn's Disease: No Obstructive Bowel: No Hiatal Hernia: No Hemorrhoids: No Gastroesophageal Reflux Disease: No Obesity: Yes Genital/Urinary Problems Renal Disease: No Kidney Stones: No Polycystic Kidney Disease: No Neurogenic Bladder: No Inguinal Hernia: No Dialysis: No Prostate Cancer: No Benign Prostatic Hyperplasia: No Reproductive Problems Breast Cancer: No Testicular Cancer: No Musculoskeletal Problems Muscular Dystrophy: No Myasthenia Gravis: No Marfan's Syndrome: No Bone Cancer: No Arthritis: No Rheumatoid Arthritis: No Osteoporosis: No Degenerative Disk Disease: No Gout: No Scoliosis: No Carpal Tunnel Syndrome: Yes (left) Fibromyalgia: No Fractures: No Degenerative Joint Disease: No Osteomyelitis: No Poliovirus: No Head,Eye,Nose,Throat Problems Cataracts: No Glaucoma: No Blind: No Retinal Detachment: No Macular Degeneration: No Chronic Ear Infections: No Deafness: No Eye Prosthesis: No Endocrine Problems Diabetes Mellitus Type 1: No Diabetes Mellitus Type 2: Yes Hypoglycemia: No [place]'s Syndrome: No Michael's Disease: No Hyperthyroidism: Yes Hypothyroidism: Yes Parathyroid Disease: No Pituitary Disease: No Systemic Lupus Erythematosus: No Syndrome of Inappropriate Antidiuretic Hormone: No Adrenal Disease: No Graves' Disease: No Blood Problems Anemia: No Leukemia: No Hemophilia: No Thalassemia: No Sickle Cell Disease: No Clotting Problems: No Psychologic Problems Schizophrenia: No Recreational Drug Use: No Bipolar Disorder: No Depression: No Anxiety: No Behavior Problems: No Self-Mutilation: No Attention Deficit Disorder: No Attention Deficit Hyperactivity Disorder: No Depression: No Post Traumatic Stress Disorder: No Eating Disorder: No Other Problems Hospitalization: Yes (icu 2021) Down Syndrome: No Autism: No Developmental Delay: No Shingles: No Falls: No Blood Transfusions: No Blood Transfusion Reaction: No Anesthesia Reactions: No Organ Transplant: No Chemotherapy: No Radiation Therapy: No Hyperbaric Therapy: No MRSA: No VRSA: No Vancomycin-Resistant Enterococci: No Human Immunodeficiency Virus (HIV): No Chicken Pox: Yes Measles: No Mumps: No Rubella (Irish Measles): No Pertussis: No Clostridium Difficile: No Cancer: No Lung Cancer: No Surgical History Carotid Endarterectomy: No Coronary Artery Bypass Graft: No Valve Replacement: No Pacemaker: No Thyroidectomy: No Subjective Visit Visit for: follow up visit and knee Immunization / Flu Flu Vaccine in the Last 12 Months: No Flu Vaccine Exclusion Criteria: Refused by Patient History of Present Illness Chief complaint: LEFT KNEE PAIN Date of injury / onset of symptoms: 2021 Date of 1st surgery (if applicable): Stef is a pleasant 59-year-old male with left knee pain. He reports his significant left knee arthritis and was told he had a knee replacement. He had a prior arthroscopic meniscectomy 3 years ago. This helped somewhat. The pain really increased last 3 months. He does not take any anti-inflammatories but has tried 3 injections in the past with mixed results Personal History Occupation: RETIRED Red flag PMH: none BMI Counceling provided: Yes Pain Pain level (0-10): 4 Pain location: anterior Pain quality: sharp and tingling Associated signs & symptoms: numbness and stiffness Ambulatory data Ambulatory device: none Treatments Number of previous injections: 0 Improvement with previous injections: No Number of Physical Therapy sessions: 0 Improvement with PT: No Improvement with NSAIDS: no Review of Systems Review of Systems: All systems negative unless otherwise noted in HPI.
== END 2025-04-12 09:18 | disposition home or self-care (01) ==
LOC: HODSRG 08:37
PROVIDERS: PCP Nurse Practitioner Family; Referring Provider Nurse Practitioner Family; Supervising Provider Orthopaedic Surgery Adult Reconstructive Orthopaedic Surgery; Visit Provider Orthopaedic Surgery Adult Reconstructive Orthopaedic Surgery
DX: M25.562 Pain in left knee (principal); M17.12 Unilateral primary osteoarthritis, left knee
CPT/HCPCS: 20610; 99213; J1010; J2795; G0463

== ENCOUNTER 2025-06-07 13:00 | Outpatient (RCR) | payer MEDICAID, SELFPAY ==
--- NOTE | 2025-05-27 08:20 | PT.OIERPT ---
PT OP Initial Eval Patient Information Outpatient Physical Therapy Treatment Date: 05/26/25 Visit Reasons: NUMBNESS TINGLING BOTH HANDS Medical Diagnosis: R20.2 Treatment Dx #1: Bilateral Hand Pain Treatment Dx #2: Bilateral Weakness Start of Care: 05/26/25 Date of Onset: 6 monrhs ago Smoking Status Smoking Status: Never smoker Initial Assessment Subjective: Pt is a 60 y/o male reports of hand numbness and weakness L>R worsening in the past 6 months. Pt has difficulty with sleeping, gripping, chores, self care, lifting, and performing recreational activities. Objective: Bilateral Wrist AROM: all motions are WNL Bilateral Wrist MMTs: grossly 4-/5 Color Television Console Monitor Strenght L: 70 lbs R: 90 lbs Special Test (+) phalen's (+) reverse phalen's Assessment: Pt demonstrate bilateral hand pain L>R with weakness leading to difficulty with ADLs. Pt will attempt physical therapy if pain persist Pt will be refer back to provider for further consultation. Short Term and Heavy Truck Mechanic Goals 1) Increase left hand obstetrical tech strength to 85 lbs in 6 wks to be able to perform chores 2) Decrease hand pain to 2/10 in 6 wks to be able to perform recreational activities 3) Increase wrist MMTs grossly to 4/5 in 6 wks to be able to perform self care activities 4) Indep with HEP Treatment Plan 1) Manual Therapy 2) Therapeutic Activities 3) Therapeutic Exercises 4) Modalities (ice, heat) Frequency and Duration: 2 x wk for 6 wks Certification Dates: 05/27/25 to 08/25/25 Procedure Charges OP PT Eval Mod Complex 30 minutes: Yes
--- NOTE | 2025-05-31 14:33 | PT.ODAYNRPT ---
PT Outpatient Daily Note OP Daily Note Outpatient Physical Therapy Treatment Date: 05/31/25 Visit Reasons: NUMBNESS TINGLING BOTH HANDS Subjective: Pt c/o B hand tingling. Objective: Please see flow sheet for ther ex list. Assessment: Pt symptoms remained the same of aggravated with interventions assigned. Plan: Continue with poC. Assess response to treatment. Length of Time (minutes) of Treatment: 30 Minutes Procedure Charges Therapeutic Exercise 30 minutes: Yes
--- NOTE | 2025-06-07 14:35 | PT.ODAYNRPT ---
PT Outpatient Daily Note OP Daily Note Outpatient Physical Therapy Treatment Date: 06/07/25 Visit Reasons: NUMBNESS TINGLING BOTH HANDS Subjective: Pt reports he does exercises at hoe and uses 15lb dumbbell for wrist strengthening. Objective: Please see flow sheet for ther ex list. Assessment: Progressing resistance and weight, pt tolerated well able to complete assigned reps. Plan: Continue with poC. Length of Time (minutes) of Treatment: 30 Minutes Procedure Charges Therapeutic Exercise 30 minutes: Yes
--- NOTE | 2025-06-15 15:59 | PT.ODS1RPT ---
PT OP Progress/Discharge Note Date of Service: 06/15/25 Progress Note/DC Note Progress Note/Discharge Note: DC Note Patient Information Visit Reasons: NUMBNESS TINGLING BOTH HANDS Service Continue Service or Discharge: Discharge Discharge Date: 06/15/25 Status Assessment: Pt has been seen for 3 visits (eval + 2 visits). Pt last treated 06/07/25 and called 06/15/25 to cx all pending PT appt. Pt did not meet set goals in therapy; thank you for your referrals.
== END 2025-06-15 23:59 | disposition home or self-care (01) ==
LOC: CPTX 13:00
DX: M79.642 Pain in left hand (principal); M79.641 Pain in right hand; R53.1 Weakness; R20.2 Paresthesia of skin; R20.0 Anesthesia of skin
CPT/HCPCS: 97110; 97162

== ENCOUNTER → 2025-06-13 | Outpatient (CLI) | payer MEDICAID, SELFPAY ==
--- NOTE | 2025-06-13 09:09 | XR_ITS ---
EXAMINATION: Testicular sonography complete TECHNIQUE: Grayscale sonographic images testes, assessment arterial inflow and venous outflow Doppler spectral analysis color flow analysis Date and time: June 13, 2025, 0920 hours INDICATIONS: Bilateral testicular and groin pain 1 month. FINDINGS: Right testis 4.1 cm epididymis 1.0 cm Arterial flow the testicle. No testicular mass Mild hydrocele Left testis 4.2 cm epididymis 0.9 cm Arterial flow the testicle. No testicular mass IMPRESSION: No testicular torsion or testicular mass Mild right hydrocele
== END | disposition home or self-care (01) ==
PROVIDERS: PCP Nurse Practitioner Family; Referring Provider Nurse Practitioner Family; Visit Provider Nurse Practitioner Family
DX: N43.3 Hydrocele, unspecified (principal)
CPT/HCPCS: 76870